=== PATIENT | female | born 1995 | race American Indian/Alaskan Native ===

== ENCOUNTER 2019-05-01 16:54 | Emergency (ER) | payer MEDICAID ==
--- NOTE | 2019-05-01 16:58 | Emergency Department Report ---
Blank Doc - Documentation Documentation: This is a 23-year-old female that presents with vaginal bleeding. Stated is a bout 12 weeks . This initial assessment/diagnostic orders/clinical plan/treatment(s) is/are subject to change based on patient's health status, clinical progression and re- assessment by fellow clinical providers in the ED. Further treatment and workup at subsequent clinical providers discretion. Patient/guardians urged not to elope from the ED as their condition may be serious if not clinically assessed and managed. Initial orders include: 1- Patient sent to [facility] for further evaluation and treatment 2- UA 3- labs 4- US OB
[2019-05-01 17:02] VITALS: BP 108/64
[2019-05-01] MEDS ORDERED: TYLENOL PO ONE (17:40)
[2019-05-01 17:42] LABS: Basophils % (Auto) 0.4 % (0.0-1.8); Eosinophils % (Auto) 0.4 % (0.0-4.3); Hematocrit 34.1 % (30.3-42.9); Hemoglobin 12.1 gm/dl (10.1-14.3); Lymphocytes # (Auto) 1.6 K/mm3 (1.2-5.4); Lymphocytes % (Auto) 20.5 % (13.4-35.0); Mean Corpuscular HGB Conc 36 % (30-34); Mean Corpuscular Volume 93 fl (79-97); Monocytes # (Auto) 0.4 K/mm3 (0.0-0.8); Monocytes % (Auto) 5.7 % (0.0-7.3); Platelet Count 233 K/mm3 (140-440); Red Blood Count 3.69 M/mm3 (3.65-5.03); Red Cell Distribution Width 13.9 % (13.2-15.2)
--- NOTE | 2019-05-01 18:45 | Ultrasound Report ---
US OB <= 14 weeks fetus INDICATION / CLINICAL INFORMATION: vaginal bleeding. COMPARISON: None available. FINDINGS: Single, viable intrauterine . heart rate 174. [place]-rump length measures 5.2 cm, corresponding to a gestational age of 11 weeks 6 days. Placenta is anterior low lying. Ovaries are normal. No free fluid. IMPRESSION: 1. Single, viable 11 week 6 day intrauterine . Signer Name: Lev Mckoy MD Signed: 05/01/2019 6:41 PM Workstation Name: [email or web address] ([email or web address])
--- NOTE | 2019-05-01 19:28 | Emergency Department Report ---
ED Female HPI - General Chief complaint: Vaginal Bleeding Stated complaint: POSS MISCARRIAGE/LOWER BELLY/CHEST PAIN Time Seen by Provider: 05/01/19 16:57 Source: patient Mode of arrival: Ambulatory Limitations: No Limitations - History of Present Illness Initial comments: This is a 23-year-old female that presents with vaginal bleeding. Stated is ab out 12 weeks . Complaint: vaginal bleeding Onset/Timin -: days(s) Location: suprapubic Radiation: suprapubic Severity: moderate Severity scale (0 -10): 5 Quality: cramping Consistency: constant Improves with: none Worsens with: none Are you Now?: Yes Last Menstrual Period: 01/27/19 EDC: 11/03/19 Associated Symptoms: vaginal discharge - Related Data Sexually active: Yes : 5 Para: 3 A: 2 Previous Rx's Medication Instructions Recorded Last Taken Type Sulfamethoxazole/Trimethoprim 1 each PO BID #14 tablet 10/18/13 Unknown Rx [Bactrim Ds] Acetaminophen [Acetaminophen TAB] 650 mg PO Q6HR PRN #30 tablet 05/01/19 Unknown Rx Allergies Allergy/AdvReac Type Severity Reaction Status Date / Time No Known Allergies Allergy Verified 05/01/19 16:55 ED Review of Systems ROS: Stated complaint: POSS MISCARRIAGE/LOWER BELLY/CHEST PAIN Other details as noted in HPI Constitutional: denies: chills, fever Eyes: denies: eye pain, eye discharge, vision change ENT: denies: ear pain, throat pain Respiratory: denies: cough, shortness of breath, wheezing Cardiovascular: denies: chest pain, palpitations Endocrine: no symptoms reported Gastrointestinal: denies: abdominal pain, nausea, vomiting, diarrhea Genitourinary: other (vagianl bleeding ). denies: urgency, dysuria, frequency, hematuria, discharge Musculoskeletal: denies: back pain, joint swelling, arthralgia Skin: denies: rash, lesions Neurological: denies: headache, weakness, paresthesias Psychiatric: denies: anxiety, depression Hematological/Lymphatic: denies: easy bleeding, easy bruising ED Past Medical Hx - Past Medical History Previous Medical History?: No - Surgical History Past Surgical History?: No Additional Surgical History: 01/28/14 - Social History Smoking Status: Never Smoker Substance Use Type: None - Medications Home Medications: Home Medications Medication Instructions Recorded Confirmed Last Taken Type Sulfamethoxazole/Trimethoprim 1 each PO BID #14 tablet 10/18/13 Unknown Rx [Bactrim Ds] Acetaminophen [Acetaminophen TAB] 650 mg PO Q6HR PRN #30 tablet 05/01/19 Unknown Rx ED Physical Exam - General Limitations: No Limitations General appearance: alert, in no apparent distress - Head Head exam: Present: atraumatic, normocephalic - Eye Eye exam: Present: normal appearance, PERRL, EOMI Pupils: Present: normal accommodation - ENT ENT exam: Present: mucous membranes moist - Neck Neck exam: Present: normal inspection, full ROM - Respiratory Respiratory exam: Present: normal lung sounds bilaterally. Absent: respiratory distress, wheezes, stridor, chest wall tenderness - Cardiovascular Cardiovascular Exam: Present: regular rate, normal rhythm, normal heart sounds. Absent: systolic murmur, diastolic murmur, rubs, gallop - GI/Abdominal GI/Abdominal exam: Present: soft, normal bowel sounds. Absent: distended, tenderness, guarding, bruit, hernia - Rectal Rectal exam: Present: deferred - External exam: Present: other (exam deferred by patient) - Extremities Exam Extremities exam: Present: normal inspection - Back Exam Back exam: Present: normal inspection, full ROM. Absent: tenderness, CVA tenderness (R), CVA tenderness (L), muscle spasm, paraspinal tenderness, rash noted - Neurological Exam Neurological exam: Present: alert, oriented X3, CN II-XII intact, normal gait, reflexes normal - Psychiatric Psychiatric exam: Present: normal affect, normal mood - Skin Skin exam: Present: warm, dry, intact, normal color. Absent: rash ED Course Vital Signs 05/01/19 05/01/19 17:00 17:15 Temperature 98.9 F Pulse Rate 88 Respiratory 16 17 Rate Blood Pressure 108/64 O2 Sat by Pulse 97 Oximetry ED Medical Decision Making - Lab Data Result diagrams: 05/01/19 17:14 Lab Results 05/01/19 05/01/19 05/01/19 Range/Units 17:14 17:14 17:14 WBC 7.7 (4.5-11.0) K/mm3 RBC 3.69 (3.65-5.03) M/mm3 Hgb 12.1 (10.1-14.3) gm/dl Hct 34.1 (30.3-42.9) % MCV 93 (79-97) fl MCH 33 H (28-32) pg MCHC 36 H (30-34) % RDW 13.9 (13.2-15.2) % Plt Count 233 (140-440) K/mm3 Lymph % (Auto) 20.5 (13.4-35.0) % Coffee % (Auto) 5.7 (0.0-7.3) % Eos % (Auto) 0.4 (0.0-4.3) % Baso % (Auto) 0.4 (0.0-1.8) % Lymph # 1.6 (1.2-5.4) K/mm3 Coffee # 0.4 (0.0-0.8) K/mm3 Eos # 0.0 (0.0-0.4) K/mm3 Baso # 0.0 (0.0-0.1) K/mm3 Seg Neutrophils % 73.0 H (40.0-70.0) % Seg Neutrophils # 5.6 (1.8-7.7) K/mm3 HCG, Quant [id number] H (0-4) mIU/mL Blood Type A POSITIVE Antibody Screen Negative - Radiology Data Radiology results: report reviewed, image reviewed Ordering Physician: TORY GARCIA NP Date of Service: 05/01/19 Procedure(s): US OB <= 14 weeks fetus Accession Number(s): [id number] cc: TORY GARCIA NP OB <= 14 weeks fetus INDICATION / CLINICAL INFORMATION: vaginal bleeding. COMPARISON: None available. FINDINGS: Single, viable intrauterine . heart rate 174. [place]-rump length measures 5.2 cm, corresponding to a gestational age of 11 week s 6 days. Placenta is anterior low lying. Ovaries are normal. No free fluid. IMPRESSION: 1. Single, viable 11 week 6 day intrauterine . Signer Name: Lev Mckoy MD Signed: 05/01/2019 6:41 PM Workstation Name: [id number] Transcribed By: TM Dictated By: Lev Mckoy MD Electronically Authenticated By: Lev Mckoy MD Signed Date/Time: 05/01/191840 DD/ 36 TD/TT: - Medical Decision Making US single IUP 11 weeks and 6 days , FHR: 176 bpm , plan, dc to self will follow up with obgyn in 1-2 days, pelvic rest, dx Threatened Miscarriage pt dc'd to home in stable condition at this time. Critical care attestation.: If time is entered above; I have spent that time in minutes in the direct care of this critically ill patient, excluding procedure time. ED Disposition Clinical Impression: Threatened miscarriage Disposition: DC-01 TO HOME OR SELFCARE Is pt being admited?: No Does the pt Need Aspirin: No Condition: Stable Instructions: Threatened Miscarriage (ED) Prescriptions: Acetaminophen [Acetaminophen TAB] 650 mg PO Q6HR PRN #30 tablet PRN Reason: Pain Referrals: LUCITA ARORA MD [Staff Physician] - 3-5 Days Forms: Work/School Release Form(ED) Time of Disposition: 19:37
[2019-05-01 19:35] LABS: Bacteria,Urine 1+ /HPF (Negative); Bilirubin,Urine NEG (Negative); Blood,Urine LG (Negative); Color,Urine Yellow (Yellow); Mucus,Urine 3+ /HPF
== END 2019-05-01 19:45 | disposition home or self-care (01) ==
LOC: ED 16:54
DX: O20.0 Threatened abortion (principal); Z79.899 Other long term (current) drug therapy; Z3A.11 11 weeks gestation of pregnancy
CPT/HCPCS: 36415; 76801; 81001; 84702; 85025; 86850; 86900; 86901